=== PATIENT | female | born 1990 ===

== ENCOUNTER 2022-02-17 02:10 | Inpatient (IN) ==
[~2022-02-17 02:10] MED LIST: CeFAZolin 2,000 MG/120 ML BAG IVPB ONE; Famotidine 20 MG/2 ML VIAL IVP ONE; Metoclopramide 10 MG/2 ML VIAL IVP ONE; Ringers Solution, Lactated 1,000 ML ONE
[2022-02-17] MEDS ORDERED: *HR* Nalbuphine 10 MG/ML AMPUL IV PRN ×2 (02:18→05:58)
[2022-02-17 02:29] LABS: Basophils # 0.1 K/mcL (0.0-0.2); Basophils % 0.4 %; Eosinophils # 0.1 K/mcL (0.0-0.6); Eosinophils % 0.8 %; Hematocrit 38.2 % (35.3-44.9); Hemoglobin 12.6 g/dL (11.5-15.4); Immature Granulocytes % 0.6 % (0-4); Lymphocytes # 1.7 K/mcL (0.6-4.6); Mean Corpuscular Hemoglobin 28.4 pg (28.0-33.3); Mean Corpuscular Volume 86.2 fL (83.0-100.0); Mean Platelet Volume 11.9 fL (9.4-12.4); Monocytes % 6.3 %; Neutrophils # 12.8 K/mcL (1.6-8.9); Platelet Count 196 K/mcL (140-400); Red Blood Count 4.43 M/mcL (3.82-4.97); Red Cell Distribution Width 14.1 % (11.5-14.5); Segmented Neutrophils % 80.9 %; White Blood Count 15.8 K/mcL (4.3-11.1)
[2022-02-17 03:28] LABS: Amphetamine Screen,Urine Negative ng/mL (Cutoff=1000); Barbiturate Screen,Urine Negative ng/mL (Cutoff=200); Benzodiazepines Screen,Urine Negative ng/mL (Cutoff=200); Cannabinoid Screen,Urine Negative ng/mL (Cutoff = 50); Cocaine Screen,Urine Negative ng/mL (Cutoff= 300); Opiate Screen,Urine Negative ng/mL (Cutoff=300); Phencyclidine Screen,Urine Negative ng/mL (Cutoff=25)
[2022-02-17] MEDS ORDERED: Ringers Solution, Lactated 1,000 ML ONE ×2 (04:30→07:16)
[2022-02-17] MEDS ORDERED: Oxytocin 30 UNIT/503 ML BAG IVC ONE (05:41)
[2022-02-17] MEDS ORDERED: *HR* OxyCODONE Immed Rel 5 MG TABLET PO PRN (05:57)
[2022-02-17] MEDS ORDERED: *HR* FentaNYL (PF) 100 MCG/2 ML VIAL IVP PRN (05:57)
[2022-02-17] MEDS ORDERED: Promethazine 6.25 MG in Water for inj. (sterile) 20 ML IVPB PRN ×2 (05:57→08:07)
[2022-02-17] MEDS ORDERED: *HR* FentaNYL (PF) 100 MCG/2 ML VIAL ONE (06:03)
[2022-02-17] MEDS ORDERED: *HR* Morphine Sulfate/PF 10 MG/10 ML AMPUL ONE (06:03)
[2022-02-17] MEDS ORDERED: Acetaminophen IV 1,000 MG/100 ML BAG IVPB ONE (06:04)
[2022-02-17] MEDS ORDERED: Ketorolac 30 MG/ML VIAL ONE (06:04)
[2022-02-17] MEDS ORDERED: Ondansetron 4 MG/2 ML VIAL ONE (06:20)
[2022-02-17] MEDS ORDERED: *HR* Midazolam HCl 2 MG/2 ML VIAL ONE (06:27)
[2022-02-17] MEDS ORDERED: EPHEDrine sulfate 50 MG/10 ML VIAL IVP ONE (06:28)
[2022-02-17] MEDS ORDERED: *HR* HYDROmorphone PF 0.5 MG/0.5 ML SYRINGE IVP PRN (08:07)
[2022-02-17] MEDS ORDERED: Ondansetron 4 MG/2 ML VIAL IVP PRN ×2 (08:07→10:04)
[2022-02-17] MEDS ORDERED: Prenatal Vit/FA 1 EACH TABLET PO SCH (10:04)
[2022-02-17] MEDS ORDERED: OXYTOCIN/RINGERS LACTATE 10 UNIT/166.6 ML BAG IVC ONE (10:04)
[2022-02-17] MEDS ORDERED: Oxytocin 30 UNIT/503 ML BAG IVC SCH (10:04)
[2022-02-17] MEDS ORDERED: Rho Immune Globulin 1,500 UNIT SYRINGE IM ONE (10:04)
[2022-02-17] MEDS ORDERED: Metoclopramide 10 MG/2 ML VIAL IVP PRN (10:04)
[2022-02-17] MEDS ORDERED: Ringers Solution, Lactated 1,000 ML IVC SCH (10:04)
[2022-02-17] MEDS: Acetaminophen 325 MG TABLET PO SCH ×2 (11:32→20:26)
[2022-02-17] MEDS: Ibuprofen 600 MG TABLET PO SCH ×2 (11:32→20:25)
[2022-02-17] MEDS: Simethicone 80 MG TAB.CHEW PO PRN (20:26)
[2022-02-17] MEDS: *HR* OxyCODONE Immed Rel 5 MG TABLET PO PRN (20:44)
[2022-02-18 05:30] VITALS: PULSE 84
[2022-02-18 06:56] VITALS: BP 84/50; TEMP 98; O2SAT 97
[2022-02-18] MEDS: Simethicone 80 MG TAB.CHEW PO PRN ×2 (07:42→13:41)
[2022-02-18] MEDS: *HR* OxyCODONE Immed Rel 5 MG TABLET PO PRN ×3 (09:37→18:12)
[2022-02-18] MEDS: Ibuprofen 600 MG TABLET PO SCH (13:41)
[2022-02-18] MEDS: Acetaminophen 325 MG TABLET PO SCH (13:41)
== END 2022-02-18 20:00 | disposition home or self-care (01) | DRG 540 ==
LOC: 1NENULAB → 1NENUOBS 09:34
PROVIDERS: ADMIT Obstetrics & Gynecology; ATTEND Obstetrics & Gynecology